=== PATIENT | female | born 1940 | race Two or more races ===

== ENCOUNTER 2023-12-23 11:56 | Inpatient (IN) | payer MEDICARE, OTHER ==
[~2023-12-23] VITALS: Ht 160 cm; Wt 65.8 kg
[2023-12-23 13:02] LABS: BASOPHILS # (AUTO) 0.1 K/uL (0.0-0.2); BASOPHILS % (AUTO) 0.8 % (0.0-2.0); EOSINOPHILS # (AUTO) 1.7 K/uL (0.0-0.7); EOSINOPHILS % (AUTO) 20.7 % (0.0-6.0); HEMATOCRIT 38 % (33-45); HEMOGLOBIN 12.4 g/dL (11.5-14.8); LYMPHOCYTES # (AUTO) 2.1 K/uL (0.8-4.8); LYMPHOCYTES % (AUTO) 25.4 % (20.0-44.0); MEAN CORPUSCULAR HEMOGLOBIN 31 PG (26.0-33.0); MEAN CORPUSCULAR HGB CONC 33 g/dl (31.0-36.0); MEAN CORPUSCULAR VOLUME 94 fL (82-100); MONOCYTES # (AUTO) 0.4 K/uL (0.1-1.30); MONOCYTES % (AUTO) 5.3 % (2.0-12.0); NEUTROPHILS % (AUTO) 47.8 % (43.0-81.0); PLATELET COUNT (AUTO) 280 K/uL (150-450); RED BLOOD CELL COUNT(AUTO) 4.04 MIL/uL (4.0-5.2); RED CELL DISTRIBUTION WIDTH 14.9 % (11.5-15.0); WHITE BLOOD COUNT (AUTO) 8.4 K/uL (4.3-11.0)
[2023-12-23 13:07] LABS: INR 1.08 (0.91-1.10); PARTIAL THROMBOPLASTIN TIME 25.7 SEC (24.3-34.3); PROTHROMBIN TIME 11.4 SECS (9.2-11.1)
[2023-12-23 13:09] LABS: LACTIC ACID 1.5 mmol/L (0.4-2.0)
[2023-12-23 13:16] LABS: CALCIUM, SERUM 9.1 mg/dL (8.5-10.1); CARBON DIOXIDE 22 mmol/L (21-32); CHLORIDE 108 mmol/L (98-107); CREATININE 0.8 mg/dL (0.6-1.3); GLUCOSE 105 mg/dL (74-106); POTASSIUM 4.5 mmol/L (3.5-5.1); SODIUM SERUM 140 mmol/L (136-145); UREA NITROGEN, BLOOD 26 mg/dL (7-18)
[2023-12-23 13:22] LABS: ALANINE AMINOTRANSFERASE 11 U/L (12-78); ALBUMIN 3.6 g/dL (3.4-5.0); ALKALINE PHOSPHATASE 125 U/L (46-116); ASPARTATE AMINOTRANSFERASE 11 U/L (15-37); BILIRUBIN,DIRECT 0.2 mg/dL (0.0-0.2); BILIRUBIN,TOTAL 0.6 mg/dL (0.2-1.0); TOTAL PROTEIN, SERUM 7.3 g/dL (6.4-8.2)
[2023-12-23] MEDS ORDERED: METO-357 PO (13:27)
[2023-12-23] MEDS ORDERED: NAPR-1009 PO (13:27)
[2023-12-23] MEDS ORDERED: LISI20TA30 PO (13:27)
[2023-12-23] MEDS ORDERED: ATOR20TA PO (13:27)
[2023-12-23 13:50] VITALS: BP 120/75; TEMP 98.6; O2SAT 97
[2023-12-23] MEDS ORDERED: MAG HYDROX/AL HYDROX/SIMETH 30 ML UDC PO PRN (15:00)
[2023-12-23] MEDS ORDERED: ACETAMINOPHEN 325 MG TABLET PO PRN (15:00)
[2023-12-23] MEDS ORDERED: ONDANSETRON HCL/PF 4 MG/2 ML VIAL IVP PRN (15:00)
[2023-12-23] MEDS ORDERED: Z GUARD REMEDY 4 OZ OINT TP PRN (15:00)
[2023-12-23] MEDS: IV NS 0.9% 1,000 ML IV PRN (15:26)
[2023-12-23 16:00] VITALS: BP 118/66; TEMP 98.5; O2SAT 98
[2023-12-23] MEDS: APIXABAN 2.5 MG TABLET PO SCH (17:27)
[2023-12-23 20:00] VITALS: BP 104/77; TEMP 98.8; O2SAT 97
[2023-12-23] MEDS: ZOLPIDEM TARTRATE 5 MG TABLET PO PRN (22:01)
[2023-12-24] VITALS: BP 102/65; TEMP 98.9; O2SAT 97
[2023-12-24 04:00] VITALS: BP 138/84; TEMP 97.7; O2SAT 97
[2023-12-24 06:28] LABS: BASOPHILS % (AUTO) 0.5 % (0.0-2.0); EOSINOPHILS # (AUTO) 1.7 K/uL (0.0-0.7); EOSINOPHILS % (AUTO) 24.7 % (0.0-6.0); HEMATOCRIT 35 % (33-45); HEMOGLOBIN 11.5 g/dL (11.5-14.8); LYMPHOCYTES # (AUTO) 2.4 K/uL (0.8-4.8); MEAN CORPUSCULAR HEMOGLOBIN 32 PG (26.0-33.0); MEAN CORPUSCULAR HGB CONC 33 g/dl (31.0-36.0); MEAN CORPUSCULAR VOLUME 95 fL (82-100); MONOCYTES # (AUTO) 0.5 K/uL (0.1-1.30); MONOCYTES % (AUTO) 7.1 % (2.0-12.0); NEUTROPHILS # (AUTO) 2.1 K/uL (1.8-8.9); NEUTROPHILS % (AUTO) 31.7 % (43.0-81.0); PLATELET COUNT (AUTO) 230 K/uL (150-450); RED BLOOD CELL COUNT(AUTO) 3.63 MIL/uL (4.0-5.2); RED CELL DISTRIBUTION WIDTH 14.7 % (11.5-15.0); WHITE BLOOD COUNT (AUTO) 6.7 K/uL (4.3-11.0)
[2023-12-24 06:38] LABS: ALANINE AMINOTRANSFERASE 14 U/L (12-78); ALKALINE PHOSPHATASE 106 U/L (46-116); ASPARTATE AMINOTRANSFERASE 15 U/L (15-37); BILIRUBIN,TOTAL 0.7 mg/dL (0.2-1.0); CALCIUM, SERUM 8.5 mg/dL (8.5-10.1); CARBON DIOXIDE 27 mmol/L (21-32); CHLORIDE 110 mmol/L (98-107); CREATININE 0.8 mg/dL (0.6-1.3); GLUCOSE 96 mg/dL (74-106); MAGNESIUM 2.2 mg/dL (1.8-2.4); PHOSPHORUS 3.6 mg/dL (2.5-4.9); POTASSIUM 4.4 mmol/L (3.5-5.1); SODIUM SERUM 144 mmol/L (136-145); TOTAL PROTEIN, SERUM 6.4 g/dL (6.4-8.2); UREA NITROGEN, BLOOD 23 mg/dL (7-18)
[2023-12-24 07:05] LABS: APPEARANCE,URINE SLIGHTLY CLOUDY (CLEAR); BILIRUBIN,URINE NEGATIVE (NEGATIVE); BLOOD, URINE NEGATIVE Ery/uL (NEGATIVE); COLOR,URINE YELLOW (YELLOW); KETONES,URINE NEGATIVE (NEGATIVE); LEUKOCYTE ESTERASE ,URINE TRACE (NEGATIVE); NITRITE, URINE POSITIVE (NEGATIVE); PROTEIN,URINE NEGATIVE (NEGATIVE); UGLUCOSE NEGATIVE (NEGATIVE); UROBILINOGEN,URINE 0.2 EU/dL (0.2)
[2023-12-24 07:51] LABS: ADD URINE CULTURE YES; BACTERIA,URINE Many /HPF (None Seen); RBC,URINE NONE SEEN /HPF (0-2); WBC,URINE 0-2 /HPF (0-3)
[2023-12-24 07:52] LABS: SQUAMOUS EPITHELIAL CELL,UR Rare /HPF (None Seen)
[2023-12-24 08:00] VITALS: BP 129/80; TEMP 98.4; O2SAT 98
[2023-12-24] MEDS: MAGNESIUM HYDROXIDE 30 ML UDC PO PRN (08:36)
[2023-12-24] MEDS: LISINOPRIL (20MG) 20 MG TABLET PO SCH (08:37)
[2023-12-24] MEDS: ATORVASTATIN 10 MG TABLET PO SCH (08:37)
[2023-12-24] MEDS: METOPROLOL SUCCINATE 50 MG TAB.SR.24H PO SCH (08:38)
[2023-12-24 09:46] LABS: BASOPHILS % (MANUAL) 0 % (0.0-2.0); EOSINOPHILS % (MANUAL) 19 % (0-4); LYMPHOCYTES % (MANUAL) 37 % (16-48); MONOCYTES % (MANUAL) 5 % (0-11.0); NEUTROPHILS % (MANUAL) 39 (42-76)
[2023-12-24 09:47] LABS: PLATELET ESTIMATE ADEQUATE
[2023-12-24 12:00] VITALS: BP 157/99; TEMP 97.5; O2SAT 98
[2023-12-24 16:00] VITALS: BP 102/69; TEMP 98.2; O2SAT 96
[2023-12-24 20:00] VITALS: BP 121/66; TEMP 97.5; O2SAT 97
[2023-12-25 04:00] VITALS: BP 159/96; TEMP 97.3; O2SAT 96
[2023-12-25 08:00] VITALS: BP 151/94; TEMP 98.4; O2SAT 96
[2023-12-25 16:00] VITALS: BP 150/93; TEMP 98.2; O2SAT 96
[2023-12-25 20:00] VITALS: BP 187/132; TEMP 97.7; O2SAT 97
[2023-12-25] MEDS: CLONIDINE HCL 0.1 MG TABLET PO PRN (20:50)
[2023-12-26 04:00] VITALS: BP 128/92; TEMP 97.7; O2SAT 97
[2023-12-26 08:00] VITALS: BP 135/97; TEMP 97.3; O2SAT 98
[2023-12-26 12:00] VITALS: BP 135/97; TEMP 97.3; O2SAT 98
[2023-12-26 16:00] VITALS: BP 125/79; TEMP 97.3; O2SAT 98
== END 2023-12-26 17:40 | DRG 640 ==
LOC: ER 12:01 → TELE1 13:13 → MEDSG1 12-24 14:26
PROVIDERS: ADMIT Nurse Practitioner Acute Care; ATTEND Internal Medicine
DX: R62.7 Adult failure to thrive (principal); G93.41 Metabolic encephalopathy; I48.20 Chronic atrial fibrillation, unspecified; F03.93 Unspecified dementia, unspecified severity, with mood disturbance; F05 Delirium due to known physiological condition; E78.5 Hyperlipidemia, unspecified; I10 Essential (primary) hypertension; Z79.899 Other long term (current) drug therapy; R53.1 Weakness; Z68.25 Body mass index [BMI] 25.0-25.9, adult; R79.89 Other specified abnormal findings of blood chemistry; F32.A Depression, unspecified; F41.9 Anxiety disorder, unspecified
CPT/HCPCS: 36415; 70450-TC; 71045-TC; 73610-TC; 80048-TC; 80053-TC; 80076-TC; 81001; 83605-TC; 83735-TC; 84100-TC; 84484-TC; 85025-TC; 85730-TC; 87040-TC; 87086-TC; 92526; 92611-TC; A4223; G0378; J3490; J7030